=== PATIENT | male | born 1960 | race African-American/Black ===

== ENCOUNTER 2021-09-01 10:37 | Emergency (ER) | payer MEDICAID, OTHER ==
[~2021-09-01] VITALS: Ht 182.9 cm; Wt 75.0 kg
[2021-09-01] MEDS ORDERED: TETANUS, DIPHTHERIA, PERTUSSIS VAC/PF 0.5ML (>10YR OLD) IM ONE (11:00)
[2021-09-01] MEDS ORDERED: HYDROCODONE/ACETAMINOPHEN 5/325MG TABLET PO ONE (12:00)
[2021-09-01] MEDS ORDERED: BACITRACIN ZINC OINT UDPKT TOP ONE (12:00)
[2021-09-01] MEDS ORDERED: IBUP-2029 MT (12:02)
[2021-09-01] MEDS ORDERED: CEPH500C2 MT (12:02)
[2021-09-01 12:22] VITALS: BP 151/81
== END 2021-09-01 12:22 | disposition home or self-care (01) ==
LOC: ER 10:37
DX: S60.042A Contusion of left ring finger without damage to nail, initial encounter (principal); W22.8XXA Striking against or struck by other objects, initial encounter; Y93.89 Activity, other specified; Y92.89 Other specified places as the place of occurrence of the external cause; Y99.8 Other external cause status
CPT/HCPCS: 73140; 90471; 90715; 99283

== ENCOUNTER 2024-06-15 13:43 | Emergency (ER) | payer MEDICAID ==
[~2024-06-15] VITALS: Ht 185.4 cm; Wt 78.0 kg
[~2024-06-15 13:43] MED LIST: CEPH500C2 MT; IBUP-2029 MT
[2024-06-15 13:54] VITALS: O2SAT 99
[2024-06-15 16:05] LABS: BASOPHILS % 0.3 % (0.0-2.0); DIFFERENTIAL COMMENT 0; EOSINOPHILS % 0.1 % (0.0-5.0); HEMATOCRIT. 37.6 % (42.0-52.0); HEMOGLOBIN. 12.9 g/dL (14.0-18.0); LYMPHOCYTES % 11.9 % (20.0-50.0); MEAN CORPUSCULAR HGB CONC 34.4 g/dL (31.0-37.0); MEAN CORPUSCULAR VOLUME 104.7 fL (80.0-94.0); NEUTROPHILS % 77.7 % (40.0-76.0); PLATELET 233 x1000/uL (130-400); RED BLOOD CELL COUNT 3.59 mill/uL (4.7-6.1); WHITE BLOOD COUNT 8.8 x1000/uL (4.5-11.0)
[2024-06-15 16:06] LABS: CHLORIDE 102 mEq/L (98-107); POTASSIUM 3.8 mEq/L (3.5-5.1); SODIUM 139 mEq/L (136-145)
[2024-06-15 16:07] LABS: CARBON DIOXIDE 28 mEq/L (21-32); INR 0.9; PROTHROMBIN TIME 10.1 sec (9.6-11.0)
[2024-06-15 16:08] LABS: CALCIUM 9.3 mg/dL (8.7-10.4)
[2024-06-15 16:12] LABS: CREATININE 1.3 mg/dL (0.6-1.3); GLUCOSE 114 mg/dL (70-105)
[2024-06-15 16:13] LABS: TROPONIN I HIGH SENSITIVITY 7 ng/L (3.0-53); UREA NITROGEN BLOOD 11 mg/dL (9-23)
[2024-06-15] MEDS ORDERED: TOPUD MT (17:50)
[2024-06-15] MEDS ORDERED: IBUP-1525 MT (17:50)
[2024-06-15 17:59] VITALS: BP 11/76; PULSE 97; RESP 14; TEMP 36.8; O2SAT 100
[2024-06-15] MEDS: IBUPROFEN 800MG TABLET PO ONE (17:59)
[2024-06-15] MEDS ORDERED: ACETAMINOPHEN 325MG TABLET PO ONE (18:00)
== END 2024-06-15 18:04 | disposition home or self-care (01) ==
LOC: ER 13:43
DX: M25.511 Pain in right shoulder (principal); R51.9 Headache, unspecified; Z79.899 Other long term (current) drug therapy; W10.9XXA Fall (on) (from) unspecified stairs and steps, initial encounter; Y93.89 Activity, other specified; Y92.89 Other specified places as the place of occurrence of the external cause; Y99.8 Other external cause status
CPT/HCPCS: 36415; 73030; 80048; 82962; 84484; 85025; 93005; 99285